=== PATIENT | male | born 1940 | race Caucasian/White ===

== ENCOUNTER 2020-01-10 07:30 | Day surgery (SDC) | payer MEDICARE, BC ==
[2020-01-17] VITALS (9 sets, daily range): BP systolic 111–136; BP diastolic 63–79; PULSE 50–98; TEMP 98.1
[2020-01-17 07:32] LABS: HEMATOCRIT 36.8 % (42.0-52.0); HEMOGLOBIN 12.2 g/dl (13.5-18.0); MEAN CELL VOLUME 92 fl (80.0-100.0); MEAN CORPUSCULAR HEMOGLOBIN 31 pg (27.0-31.0); MEAN CORPUSCULAR HGB CONC 33 g/dl (33.0-37.0); MEAN PLATELET VOLUME 10.1 fl (7.4-10.4); PLATELET COUNT 212 K/mm3 (130-400); REDCELL DISTRIBUTION WIDTH-CV 14.5 % (11.5-14.5)
[2020-01-17 07:35] LABS: INR 1.2 (0.8-3.0); PROTHROMBIN TIME 13.8 SECONDS (9.7-12.8)
[2020-01-17 07:42] LABS: CALCIUM 9.2 mg/dL (8.4-10.2); CREATININE, serum 1.19 (0.66-1.25); POTASSIUM 4.4 mmol/L (3.4-5.0)
[2020-01-17] MEDS ORDERED: SYNTHROID0.05 MG/TA PO (07:44)
[2020-01-17] MEDS ORDERED: GLUCOPHAGE500 MG/TAB PO (07:45)
[2020-01-17] MEDS ORDERED: METADATEER20 PO (07:47)
[2020-01-17] MEDS ORDERED: ACTOS 45MG45 MG/TAB PO (07:48)
[2020-01-17] MEDS ORDERED: TOFRANIL50 MG PO (07:49)
[2020-01-17] MEDS ORDERED: MONOPRIL10 MG PO (07:50)
[2020-01-17] MEDS ORDERED: ZYLOPRIM 100MG100 MG PO (07:50)
[2020-01-17] MEDS ORDERED: JANUVIA 100MG100 MG PO (07:52)
[2020-01-17] MEDS ORDERED: PROTONIX 40MG T40 MG PO (07:53)
[2020-01-17] MEDS ORDERED: LIPITOR 40MG TA40 MG PO (07:54)
[2020-01-17] MEDS ORDERED: VITAMIN D31000 I1 PO (07:55)
[2020-01-17] MEDS ORDERED: EPA FISH OIL1 SGL PO (07:56)
[2020-01-17] MEDS ORDERED: ICAPS TABLET1 EACH PO (07:57)
[2020-01-17] MEDS ORDERED: MIRALAX PA17 GM/Dose PO (07:58)
[2020-01-17] MEDS ORDERED: IBU400 MG PO (07:58)
[2020-01-17] MEDS ORDERED: CETAPHIL COMPO480 ML TOP (07:59)
[2020-01-17] MEDS ORDERED: CLARITIN-D 10 M1 T24 PO (07:59)
[2020-01-17] MEDS ORDERED: [UNRECOGNIZED DRUG - OTHER] TP (08:00)
--- NOTE | 2020-01-17 08:41 | NUR ---
Pt to procedure at this time.
--- NOTE | 2020-01-17 08:59 | NUR ---
SEE MERGE DOCUMENTATION FOR MEDICATION ADMINISTRATION TIMES AND INTRA/POST PROCEDURE SEDATION ASSESSMENTS. RIGHT HAND BARBEAU TEST POSITIVE.
[2020-01-17] MEDS ORDERED: GNC L-ARGININE500 MG PO (09:29)
[2020-01-17] MEDS ORDERED: ASPIRIN 81M81 MG/TA2 PO (09:31)
--- NOTE | 2020-01-17 09:45 | NUR ---
Report from Neil PENG. Transferred from Interventional Radiology Tech by bed. Alert and oriented, denies pain and needs at this time. VSS.
--- NOTE | 2020-01-17 11:51 | NUR ---
INT discontinued intact. Right Trband deflated of 10 cc air and pressure dressing applied. Discharge instructions given
--- NOTE | 2020-01-17 12:00 | NUR ---
Transferred to private car by oksana
== END 2020-01-17 12:48 | disposition home or self-care (01) ==
LOC: COL.CAR
PROVIDERS: Internal Medicine Cardiovascular Disease
DX: I25.110 Atherosclerotic heart disease of native coronary artery with unstable angina pectoris (principal); E11.9 Type 2 diabetes mellitus without complications; I10 Essential (primary) hypertension; E78.2 Mixed hyperlipidemia; Z90.49 Acquired absence of other specified parts of digestive tract; Z79.82 Long term (current) use of aspirin; Z79.84 Long term (current) use of oral hypoglycemic drugs; Z88.0 Allergy status to penicillin
CPT/HCPCS: J1644; J2250; J3010; Q9967